=== PATIENT | male | born 1965 | race Two or more races ===

== ENCOUNTER 2019-08-22 10:44 | Inpatient (IN) | payer MEDICAID, OTHER ==
[~2019-08-22] VITALS: Ht 170.2 cm; Wt 179.2 kg
[2019-08-22 12:11] LABS: Basophils # (auto) 0.1 10 ^3/uL (0-0.2); Basophils % (auto) 0.9 % (0.0-2.0); Eosinophils # (auto) 0.1 10 ^3/uL (0-0.8); Eosinophils % (auto) 1.7 % (0.0-7.0); Hematocrit 44.9 % (41.0-53.0); Hemoglobin 15.4 g/dL (13.5-17.5); Lymphocytes # (auto) 0.6 10 ^3/uL (0.4-5.4); Lymphocytes % (auto) 7.7 % (10.0-50.0); Mean Corpuscular Hemoglobin 31.3 pg (28.0-32.0); Mean Corpuscular Hgb Conc. 34.4 g/dL (32.0-36.0); Mean Corpuscular Volume 91.1 fL (80.0-100.0); Monocytes # (auto) 0.7 10 ^3/uL (0-1.3); Monocytes % (auto) 9.4 % (0.0-12.0); Neutrophils # (auto) 6.2 10 ^3/uL (1.6-8.6); Neutrophils % (auto) 80.3 % (37.0-80.0); Platelet Count (auto) 107 10^3/uL (140-450); Red Blood Cells 4.93 10^6/uL (4.5-5.90); Red Cell Distribution Width 13.5 % (11.8-14.3); White Blood Cell 7.8 10^3/uL (4.4-10.8)
[2019-08-22 12:32] LABS: Potassium 4.2 mmol/L (3.5-5.1)
[2019-08-22 12:42] LABS: Albumin 3.7 g/dL (3.4-5.0); BUN/Creatinine Ratio 17.8; Bilirubin, Total 0.9 mg/dL (0.2-1.0); Calcium 8.9 mg/dL (8.5-10.1); Total Protein 8.3 g/dL (6.4-8.2)
[2019-08-22] MEDS ORDERED: ONDANSETRON HCL 4 MG/2 ML VIAL IV ONE (13:00)
[2019-08-22] MEDS ORDERED: MORPHINE SULF INJ 2 MG/ML SYRINGE 1ML IV ONE (13:00)
[2019-08-22] MEDS ORDERED: SODIUM CHLORIDE 0.9% 1,000 ML IVB ONE (13:40)
[2019-08-22] MEDS ORDERED: KETOROLAC TROMETH 15 mg/ml 1ML VL IV ONE (13:45)
[2019-08-22] MEDS ORDERED: CYCLOBENZAPRINE HCL 10 MG TAB PO ONE (13:45)
[2019-08-22] MEDS ORDERED: MORPHINE SULF INJ 2 MG/ML SYRINGE 1ML IV PRN (17:30)
[2019-08-22] MEDS ORDERED: ACETAMINOPHEN 500 MG TAB PO PRN (17:30)
[2019-08-22] MEDS ORDERED: hydrALAZINE HCL 20 MG/ML VL IV PRN (17:30)
[2019-08-22] MEDS ORDERED: FUROSEMIDE 20 MG/2 ML VIAL IV ONE (17:30)
[2019-08-22] MEDS ORDERED: NITROGLYCERIN 0.4 MG SL TAB SL PRN (17:30)
[2019-08-22] MEDS: KETOROLAC TROMETH 15 mg/ml 1ML VL IV PRN (18:51)
--- NOTE | 2019-08-22 18:51 | NUR ---
Telemetry admit from ER TIFFANYMARU admitted to Telemetry unit after SBAR received. Patient oriented to CHINTAN CARDONA RN primary RN, unit, room, bed, and unit policies regarding patient care and visiting hours. Patient now on continuous telemetry monitoring. Patient placed on bedside oxygen, weighed by bedscale and encouraged to call if they need something. All questions and concerns addressed, patient verbalized understanding.
--- NOTE | 2019-08-22 18:53 | NUR ---
COMMUNICATION Patient verbalizing pain 10/10 and requesting Toradol IV. Patient states Toradol works better for him than morphine. Will medicate per MD orders and continue care.
--- NOTE | 2019-08-22 19:00 | NUR ---
Opening Shift Note Assumed care of patient, awake and alert. No S/S of distress/SOB or pain. Instructed on POC and to call for assist PRN, will continue to monitor for changes Q1hr and PRN. Call button placed next to patient.
[2019-08-22 20:00] VITALS: BP 124/74
--- NOTE | 2019-08-22 20:00 | NUR ---
Patient verbalized morphine or toradol no longer gives him relief from pain. Will page hospitalist.
[2019-08-22] MEDS ORDERED: HYDR25TA4 PO (20:05)
[2019-08-22] MEDS ORDERED: ASPI81CH43 PO (20:05)
[2019-08-22] MEDS ORDERED: BECLPOW12 IN (20:05)
[2019-08-22] MEDS ORDERED: FLUT0.05 NAS (20:05)
[2019-08-22] MEDS ORDERED: LISI-646 PO (20:05)
--- NOTE | 2019-08-22 20:09 | NUR ---
Spoke to hospitalist STEFFEN Fletcher regarding no pain relief from morphine or toradol. Received order for Zephyr 7.5. Continue care
[2019-08-22] MEDS: CYCLOBENZAPRINE HCL 10 MG TAB PO SCH (21:30)
[2019-08-22] MEDS: HYDROcodone-ACET 7.5/325MG TAB PO PRN (21:31)
[2019-08-22 22:00] VITALS: BP 135/72
[2019-08-23] VITALS (7 sets, daily range): BP systolic 95–132; BP diastolic 50–65
[2019-08-23] MEDS: HYDROcodone-ACET 7.5/325MG TAB PO PRN ×4 (02:49→23:53)
[2019-08-23 05:56] LABS: Hematocrit 40.8 % (41.0-53.0); Mean Corpuscular Hemoglobin 31.3 pg (28.0-32.0); Mean Corpuscular Hgb Conc. 34.4 g/dL (32.0-36.0); Platelet Count (auto) 105 10^3/uL (140-450); Red Blood Cells 4.48 10^6/uL (4.5-5.90); Red Cell Distribution Width 13.9 % (11.8-14.3); White Blood Cell 17.2 10^3/uL (4.4-10.8)
[2019-08-23] MEDS: CYCLOBENZAPRINE HCL 10 MG TAB PO SCH (06:10)
[2019-08-23] MEDS: KETOROLAC TROMETH 15 mg/ml 1ML VL IV PRN (06:12)
[2019-08-23 06:13] LABS: Potassium 4.6 mmol/L (3.5-5.1)
[2019-08-23 06:15] LABS: BUN/Creatinine Ratio 18.1; Calcium 8.2 mg/dL (8.5-10.1)
[2019-08-23 06:29] LABS: Basophils % (manual) 0 (0.0-2.0); Blast Cells 0; Eosinophils % (manual) 0 (0-7); Metamyelocytes % 0; Myelocytes % 0; Promyelocytes % 0; Reactive Lymphocytes 0
--- NOTE | 2019-08-23 07:10 | NUR ---
Endorsed care to day shift RN. Patient in bed asleep with no signs of distress.
--- NOTE | 2019-08-23 07:11 | NUR ---
Morning note patient resting in bed with eyes closed, respirations even and unlabored, no distress noted. Fall precautions in place with call light within reach.
[2019-08-23 07:54] LABS: Band Neutrophils % (manual) 8; Lymphocytes % (manual) 1 (10.0-50.0); Monocytes % (manual) 8 (0-12)
--- NOTE | 2019-08-23 08:00 | NUR ---
RE: Skin assessment Patient is wearing sweat pants. BLE skin intact. Unable to assess bilateral upper leg skin due to patient's sweat pants being in place. Patient refusing to remove pants. Patient stated "Maybe later."
--- NOTE | 2019-08-23 09:23 | NUR ---
Patient repositioned - patient able to turn self independently Patient repositioned for comfort. Patient reports pain is tolerable at 4/10. Patient reports pain is located in the RUQ and wrapping around to the back. Patient refused pain medication. Call light within reach.
[2019-08-23] MEDS: FAMOTIDINE 20 MG TAB PO SCH (10:00)
[2019-08-23] MEDS ORDERED: LISINOPRIL 10 MG TAB PO SCH (10:00)
--- NOTE | 2019-08-23 12:38 | NUR ---
Influenza specimen collected & sent to lab per MD order
--- NOTE | 2019-08-23 12:39 | NUR ---
Urine specimen cup placed at bedside Instructed patient on MD's order. Patient verbalized understanding. Instructed patient to notify staff once urine specimen is produced. Patient verbalized understanding. Call light within reach.
--- NOTE | 2019-08-23 12:47 | NUR ---
was at bedside - Dr. Aguilar Order received and read back to verify.
[2019-08-23] MEDS ORDERED: SODIUM CHLORIDE 0.9% 1,000 ML IV ONE (13:00)
--- NOTE | 2019-08-23 13:03 | NUR ---
Notified of recent weight gain Patient reports recent weight gain of 40 pounds in the last 2 months with an additional 20 pound weight gain in the past 3 weeks for a total weight gain of 60 pounds in the last [address] Aguilar.
[2019-08-23 13:28] LABS: INR 1.15 (0.9-1.15); Partial Thromboplastin Time 30.5 sec (23.64-32.05)
[2019-08-23] MEDS ORDERED: MAGNESIUM SULFATE 1GM/100ML 100 ML IV SCH (15:00)
--- NOTE | 2019-08-23 15:42 | NUR ---
RE: Pain Patient is reporting pain in the RUQ radiating to the back. Patient rates the pain 6/10. Patient reports pain is tolerable although is requesting pain medication. Informed patient that PRN pain medication cannot be administered right now due to MD order of frequency. Patient verbalized understanding. Heat pack provided for comfort. Respirations are even and unlabored on 3LPM NC, no distress noted. Call light within reach.
--- NOTE | 2019-08-23 16:23 | NUR ---
Bladder scan performed - 402ml urine Patient reports not urinating this RN's shift. Bladder scan performed. 402 ml urine located. Patient states "I'm going to go pee now because I don't want to deal with that catheter. I've had that before." Instructed patient to notify staff once he has urinated. Patient verbalized understanding.
--- NOTE | 2019-08-23 16:41 | NUR ---
Urine specimen collected - patient urinated 375ml of dark colored urine Urine specimen collected and sent to lab per md order.
--- NOTE | 2019-08-23 16:42 | NUR ---
Paged MD - Dr. Aguilar RE: pain Patient reports severe pain in the RUQ. Patient medicated with the PRN pain medication per MD order. Patient reports heat pack did not help with the pain.
--- NOTE | 2019-08-23 16:46 | NUR ---
Updated MD on patient's pain MD verbalized understanding. Order received and read back to verify.
[2019-08-23 16:59] LABS: Urine Bacteria NONE SEEN /hpf (None Seen); Urine Blood Negative /uL (Negative); Urine Mucus FEW (None Seen); Urine Specific Gravity 1.027 (1.001-1.035); Urine WBC 3 /hpf (0 - 3)
[2019-08-23] MEDS: MORPHINE SULF INJ 2 MG/ML SYRINGE 1ML IV PRN ×2 (17:19→22:07)
--- NOTE | 2019-08-23 17:38 | NUR ---
called for an update - Dr. Aguilar Updated on patient's status provided. verbalized understanding. Ordered to continue to monitor.
[2019-08-23] MEDS ORDERED: OPTISON 3ml Vial for INJ IV ONE (18:00)
--- NOTE | 2019-08-23 18:12 | NUR ---
RE: Optison administration Optison administered during echocardiogram examination. Patient tolerated well. Respirations even and unlabored on 3LPM NC, no distress noted.
--- NOTE | 2019-08-23 18:54 | NUR ---
Closing note patient resting in bed with eyes closed; respirations even and unlabored on 3 LPM NC, no distress noted. Fall precautions in place with call light within reach.
--- NOTE | 2019-08-23 19:22 | NUR ---
Care endorsed to [facility], electronic scale assembler and tester.
[2019-08-23] MEDS ORDERED: KETOROLAC TROMETH 15 mg/ml 1ML VL IV ONE (22:15)
[2019-08-24 05:00] VITALS: BP 115/70
[2019-08-24] MEDS: MORPHINE SULF INJ 2 MG/ML SYRINGE 1ML IV PRN ×2 (06:01→12:15)
--- NOTE | 2019-08-24 07:30 | NUR ---
Opening Shift Note Assumed care of patient, No S/S of distress/SOB or pain noted at this time, currently on 2l via NC, patient currently sleeping, chest rise noted, Instructed on POC and to call for assist PRN, call light within reach, bed alarm activated, will continue to monitor for changes Q1hr and PRN.
[2019-08-24 07:47] LABS: Albumin 3.2 g/dL (3.4-5.0); Calcium 8.3 mg/dL (8.5-10.1); Potassium 4.7 mmol/L (3.5-5.1)
[2019-08-24 07:50] LABS: BUN/Creatinine Ratio 25.4; Bilirubin, Total 2.2 mg/dL (0.2-1.0); Total Protein 7.6 g/dL (6.4-8.2)
[2019-08-24 08:00] VITALS: BP 132/74
--- NOTE | 2019-08-24 08:40 | NUR ---
ACTIVITY WITNESSED PT TRANSFER SELF FROM BED TO CHAIR WITH STANDBY ASSISTANCE, PT THEN WENT BACK TO BED RELATED TO BACK PAIN, BED ALARM ACTIVATED AND CALL LIGHT WITHIN REACH, CONT CARE
[2019-08-24 09:00] VITALS: BP 132/74
[2019-08-24] MEDS: FAMOTIDINE 20 MG TAB PO SCH (09:10)
[2019-08-24] MEDS: HYDROcodone-ACET 7.5/325MG TAB PO PRN (09:11)
--- NOTE | 2019-08-24 09:31 | NUR ---
MD DR BERMUDEZ AT BEDSIDE, DISCUSSING POC, INCLUDING PAIN MANAGEMENT, CONT CARE
[2019-08-24] MEDS ORDERED: cefTRIAXone 1GM/50ML D5W 50 ML IV ONE (10:00)
[2019-08-24 10:13] LABS: Basophils # (auto) 0.1 10 ^3/uL (0-0.2); Eosinophils # (auto) 0 10 ^3/uL (0-0.8); Eosinophils % (auto) 0.1 % (0.0-7.0); Hematocrit 37.9 % (41.0-53.0); Lymphocytes # (auto) 0.3 10 ^3/uL (0.4-5.4); Lymphocytes % (auto) 3.1 % (10.0-50.0); Mean Corpuscular Hemoglobin 31.5 pg (28.0-32.0); Mean Corpuscular Hgb Conc. 34.4 g/dL (32.0-36.0); Mean Corpuscular Volume 91.5 fL (80.0-100.0); Monocytes % (auto) 9.3 % (0.0-12.0); Neutrophils # (auto) 9.5 10 ^3/uL (1.6-8.6); Neutrophils % (auto) 86.5 % (37.0-80.0); Nucleated Red Blood Cells % 0.1 %; Platelet Count (auto) 79 10^3/uL (140-450); Red Blood Cells 4.14 10^6/uL (4.5-5.90); Red Cell Distribution Width 13.9 % (11.8-14.3)
[2019-08-24] MEDS: CARISOPRODOL 350 MG TAB PO PRN (10:37)
[2019-08-24] MEDS: IBUPROFEN 800 MG TAB PO SCH ×2 (10:37→17:42)
[2019-08-24 13:00] VITALS: BP 102/53
[2019-08-24] MEDS ORDERED: PANTOPRAZOLE 40 MG TAB PO ONE (13:30)
--- NOTE | 2019-08-24 14:45 | NUR ---
PT REQUESTED THAT P.T. EVALUATION BE DONE AT A LATER TIME.
--- NOTE | 2019-08-24 14:47 | NUR ---
assessment Patient is a 54 year old male who is alert and oriented. Patients cognitive abilities are intact. Prior to admission patient lived home with family and functioned independently. Patient informed me he is able to care for his own ADLs. Per patient he will return home to his prior living arrangements post discharge and family will transport him home. Patient informed me he was stretching and felt back pain. Patient is requesting home health for PT. i informed Kimberlee RN that patient needs a PT eval prior to sending to [facility]. I informed patient he has a right to speak to a director social welfare regarding all care. I informed patient he has a right to participate in any and all discharge planning. Patient does not have a POA and advanced directive. I have offered patient information on POA and advanced directives. I informed the patient the advantages and benefits of having an Advanced Directive. Patient verbalized understanding and agreed to discharge plan. Addendum: 08/24/19 at 1456 by Mitzi HIGHTOWER Amended: Links added.
--- NOTE | 2019-08-24 15:48 | NUR ---
re-assessment [facility]. MD order has been sent to [facility]. Per Verenice at [facility] she has accepted patient for service starting within 48 hours of discharge. Authorization has been given from [facility] Connie auth #[id number]. Patient has been informed. Addendum: 08/24/19 at 1556 by Mitzi Soto Amended: Links added.
--- NOTE | 2019-08-24 16:14 | NUR ---
PAGED PAGED DR BERMUDEZ REGARDING POSITIVE BLOOD CULTURES, AWAITING CALL BACK
[2019-08-24 17:00] VITALS: BP 116/58
[2019-08-24] MEDS: oxyCODONE HCL 5MG TAB PO PRN (17:42)
--- NOTE | 2019-08-24 19:00 | NUR ---
PAGED DR MARC PAGED REGARDING POSITIVE BLOOD CULTURES, CONT CARE
--- NOTE | 2019-08-24 19:13 | NUR ---
MD RETURNED CALL SPOKE WITH DR MARC, ORDERS RECEIVED FOR VANCOMYCIN 1GM IV X1 NOW, THEN PER PHARMACY, WILL ENDORSE TO NIGHT RN
[2019-08-24] MEDS ORDERED: VANCOMYCIN PER PHARMACY 0 MG IV SCH (19:15)
[2019-08-24] MEDS ORDERED: VANCOMYCIN 1GM/250ML 250 ML IV ONE (19:15)
[2019-08-24] MEDS: VANCOMYCIN 1GM/250ML 250 ML IV SCH ×2 (20:00→21:00)
[2019-08-24 22:00] VITALS: BP 131/56
[2019-08-24] MEDS: MORPHINE SULF 15mg ER tab PO SCH (22:43)
[2019-08-24] MEDS: GABAPENTIN 100 MG CAP PO SCH (22:43)
[2019-08-24] MEDS: PANTOPRAZOLE 40 MG TAB PO SCH (22:44)
[2019-08-25] MEDS: VANCOMYCIN 1GM/250ML 250 ML IV SCH ×3 (04:00→19:57)
[2019-08-25 05:00] VITALS: BP 117/55
[2019-08-25] MEDS: GABAPENTIN 100 MG CAP PO SCH ×3 (07:06→22:07)
[2019-08-25] MEDS: PANTOPRAZOLE 40 MG TAB PO SCH ×2 (08:38→22:08)
[2019-08-25] MEDS: MORPHINE SULF 15mg ER tab PO SCH ×2 (08:38→22:08)
[2019-08-25] MEDS: IBUPROFEN 800 MG TAB PO SCH ×2 (08:38→12:24)
[2019-08-25] MEDS: cefTRIAXone 1GM/50ML D5W 50 ML IV SCH (08:39)
[2019-08-25 09:23] VITALS: BP 121/70
--- NOTE | 2019-08-25 11:00 | NUR ---
WOUND CARE NOTE: IN TO SEE PATIENT AT THIS TIME D/T LOW CLEMENTE SCORE OF 11. PATIENT WAS ADMITTED TO [facility] WITH DIAGNOSIS OF DORSALGIA, ACUTE KIDNEY FAILURE, TUBULAR NECROSIS. PATIENT IS MORBIDLY OBESE, WEIGHING 178.3 KG. ORDERED SPECIALTY BARIATRIC BED AT THIS TIME. PATIENT TO BE PLACED, PENDING DELIVERY BY [facility]UL[facility]. PATIENT HAS SEVERE BACK PAIN. WILL BE WORKING WITH PHYSICAL THERAPY TO POSSIBLY GET UP IN CHAIR. HE IS ABLE TO ASSIST WITH HIS TURNING/REPOSITIONING, BUT IS IN 10/10 PAIN WHEN REPOSITIONING. PATIENT TURNED TO THE RIGHT SIDE. SKIN IS PINK AND BLANCHABLE, NO OPEN WOUNDS NOTED. ALL BONY PROMINENCES ARE BLANCHABLE AT THIS POINT. APPLIED OPTIFOAM GENTLE SACRAL DRESSING PREVENTATIVE. RECOMMEND: FREQUENT TURN SCHEDULE Q 2 HOURS, PRN CONDITION PERMITS, WITH PRESSURE REDISTRIBUTION USING PILLOWS/WEDGES, SPECIALTY BARIATRIC BED, SKIN/WOUND CARE PLAN, BID/PRN APPLICATION WITH MOISTURE BARRIER CREAM, OPTIFOAM GENTLE SACRAL DRESSING PREVENTATIVE, DIETARY CONSULT FOR IMMOBILITY, CONTINUED MONITORING BY WOUND CARE TEAM.
[2019-08-25 13:00] VITALS: BP 109/68
[2019-08-25 14:35] LABS: Basophils # (auto) 0 10 ^3/uL (0-0.2); Basophils % (auto) 0.3 % (0.0-2.0); Eosinophils # (auto) 0.1 10 ^3/uL (0-0.8); Eosinophils % (auto) 1.2 % (0.0-7.0); Hematocrit 37.9 % (41.0-53.0); Hemoglobin 13.1 g/dL (13.5-17.5); Lymphocytes # (auto) 0.5 10 ^3/uL (0.4-5.4); Lymphocytes % (auto) 5.7 % (10.0-50.0); Mean Corpuscular Hemoglobin 31.6 pg (28.0-32.0); Mean Corpuscular Hgb Conc. 34.4 g/dL (32.0-36.0); Mean Corpuscular Volume 91.8 fL (80.0-100.0); Monocytes # (auto) 0.9 10 ^3/uL (0-1.3); Monocytes % (auto) 11.6 % (0.0-12.0); Neutrophils # (auto) 6.6 10 ^3/uL (1.6-8.6); Neutrophils % (auto) 81.2 % (37.0-80.0); Nucleated Red Blood Cells % 0.1 %; Platelet Count (auto) 87 10^3/uL (140-450); Red Blood Cells 4.13 10^6/uL (4.5-5.90); Red Cell Distribution Width 13.5 % (11.8-14.3); White Blood Cell 8.2 10^3/uL (4.4-10.8)
[2019-08-25 14:42] LABS: Calcium 8.3 mg/dL (8.5-10.1)
[2019-08-25 14:45] LABS: Potassium 4.9 mmol/L (3.5-5.1)
[2019-08-25] MEDS: oxyCODONE HCL 5MG TAB PO PRN (16:00)
[2019-08-25 17:00] VITALS: BP 146/89
--- NOTE | 2019-08-25 19:00 | NUR ---
Opening Shift Note Assumed care of patient, awake and alert. No S/S of distress/SOB or pain. Instructed on POC and to call for assist PRN, will continue to monitor for changes Q1hr and PRN.
[2019-08-25 21:47] VITALS: BP 121/71
--- NOTE | 2019-08-25 22:08 | NUR ---
Patient complaining of pain: Patient complaining of 10/10 pain. RN administered scheduled Oramorph.
--- NOTE | 2019-08-25 23:24 | NUR ---
Pain reassessment: Patient reassessed for pain after scheduled Oramorph was given. Patient noted to be resting in bed comfortably asleep and noted with no s/s of pain at this time. RN will continue to monitor and assess patient.
[2019-08-26] MEDS: oxyCODONE HCL 5MG TAB PO PRN ×2 (03:25→16:20)
--- NOTE | 2019-08-26 03:25 | NUR ---
Pain: Patient complaining of 10/10 pain. RN gave patient PRN Oxycodone for pain.
[2019-08-26] MEDS: VANCOMYCIN 1GM/250ML 250 ML IV SCH ×3 (03:33→19:55)
--- NOTE | 2019-08-26 04:25 | NUR ---
Pain reassessment: Patient reassessed for pain after PRN Oxycodone was given. Patient noted to be resting in bed comfortably asleep and noted with no s/s of pain at this time. RN will continue to monitor and assess patient.
[2019-08-26 05:17] VITALS: BP 110/65
[2019-08-26] MEDS: GABAPENTIN 100 MG CAP PO SCH ×3 (05:33→21:43)
--- NOTE | 2019-08-26 07:30 | NUR ---
OPENING NOTE ASSUMED CARE PT. PT ALERT AND ORIENTED X4. NO S/S OF SOB AND DISTRESS NOTED. SAFETY PRECAUTIONS IN PLACE. BED SET TO LOWEST POSITION/LOCKED. BED SIDE RAILS UP X2. BED ALARM ON. CALL LIGHT WITHIN REACH. INSTRUCTED PT TO CALL FOR ASSISTANCE. PT UPDATED ON POC. PT VERBALIZED UNDERSTANDING. WILL CONTINUE TO MONITOR Q1HR AND PRN.
--- NOTE | 2019-08-26 08:00 | NUR ---
PATIENT IS REFUSING Q2HR TURNING, PATIENT STATED "MY BACK HURTS AND MY STOMACH HURTS WHEN IM ON MY SIDE, IT FEELS LIKE I HAVE POISON IN MY STOMACH" EDUCATED PATIENT ON THE IMPORTANCE OF TURNING TO PREVENT RISK OF SKIN BREAK DOWN. PATIENT VERBALIZED UNDERSTANDING. PATIENT STILL REFUSING. WILL CONTINUE TO MONITOR AND EDUCATE PATIENT.
[2019-08-26] MEDS: cefTRIAXone 1GM/50ML D5W 50 ML IV SCH (09:24)
[2019-08-26] MEDS: ENOXAPARIN SOD 40 MG/0.4 ML SYRINGE SC SCH (09:25)
[2019-08-26] MEDS: MORPHINE SULF 15mg ER tab PO SCH ×2 (09:25→21:43)
[2019-08-26] MEDS: PANTOPRAZOLE 40 MG TAB PO SCH (09:25)
[2019-08-26 09:27] VITALS: BP 102/68
[2019-08-26] MEDS ORDERED: ENOXAPARIN SOD 40 MG/0.4 ML SYRINGE SC SCH (10:00)
--- NOTE | 2019-08-26 11:39 | NUR ---
PATIENT REFUSING TO TURN. Addendum: 08/26/19 at 1144 by Rachel Schultz RN Amended: Links added.
--- NOTE | 2019-08-26 11:44 | NUR ---
NUTRITION ASSESSMENT NOTES Please refer to link notes of nutrition screen form filed under the intervention section of the plan of care for further details. Est. Energy Needs: 2870-9124 kcal (12-15 kcal/kg BW). Est. Protein Needs: 96-115 gms/day (1.0-1.2 gms/kg Adj.BW). Will continue to monitor pertinent labs and reassess nutrient need prn Addendum: 08/26/19 at [address] Amended: Links added.
[2019-08-26] MEDS ORDERED: DEXTROSE (50%) 50ML SYRG IV PRN (12:45)
[2019-08-26 13:39] VITALS: BP 138/76
[2019-08-26] MEDS ORDERED: PANTOPRAZOLE 40 MG TAB PO ONE (14:15)
--- NOTE | 2019-08-26 16:00 | NUR ---
PATIENT IS REUSING TO TURN. EDUCATED PATIENT ON THE IMPORTANCE OF TURNING TO PREVENT SKIN BREAK DOWN. PATIENT VERBALIZED UNDERSTAND. PATIENT IS STILL REFUSING. Addendum: 08/26/19 at 1632 by Rachel Schultz RN Amended: Links added.
[2019-08-26 16:41] VITALS: BP 118/72
[2019-08-26] MEDS: ACCU-CHEK COMFORT CURVE STRIP VI SCH ×2 (17:03→23:45)
[2019-08-26] MEDS: InsuLIN REG 1unit/0.01ml Soln (100units/ml) SC SCH ×2 (17:04→23:45)
--- NOTE | 2019-08-26 18:02 | NUR ---
PATIENT IS REFUSING TO TURN. EDUCATED PATIENT ON THE IMPORTANCE OF TURNING TO PREVENT SKIN BREAK DOWN. PATIENT VERBALIZED UNDERSTAND. PATIENT IS STILL REFUSING. WILL CONTINUE TO EDUCATE Addendum: 08/26/19 at 1803 by Rachel Schultz RN Amended: Links added.
--- NOTE | 2019-08-26 20:00 | NUR ---
RN ATTEMPTED TO REPOSITION PATIENT. PATIENT IS REFUSING TO TURN AT THIS TIME. RN PROVIDED EDUCATION TO THE PATIENT ON THE IMPORTANCE OF TURNING TO PREVENT SKIN BREAK DOWN. PATIENT VERBALIZED UNDERSTANDING BUT PATIENT IS STILL REFUSING TO TURN. RN WILL CONTINUE TO EDUCATE AND ATTEMPT TO REPOSITION THE PATIENT.
--- NOTE | 2019-08-26 21:43 | NUR ---
Patient complaining of pain: Patient complaining of 10/10 pain. RN administered scheduled Oramorph.
[2019-08-26 22:00] VITALS: BP 123/75
--- NOTE | 2019-08-27 02:17 | NUR ---
IV removal d/t infiltration IV to right FA DC'd with sterile technique, catheter fully intact. Pressure dressing applied to site. Patient tolerated procedure well.
--- NOTE | 2019-08-27 03:00 | NUR ---
BM: PATIENT HAD BM. RN PROVIDED PERICARE AND LINEN CHANGE. PATIENT TOLERATED INTERVENTION WELL.
[2019-08-27] MEDS: VANCOMYCIN 1GM/250ML 250 ML IV SCH ×3 (03:30→19:49)
--- NOTE | 2019-08-27 03:30 | NUR ---
IV insertion IV access to right FA obtained, via clean sterile technique by inserting 22 gauge catheter after first attempt. IV secured properly. No trauma to site. Patient tolerated procedure well.
[2019-08-27 05:00] VITALS: BP 130/63
[2019-08-27] MEDS: GABAPENTIN 100 MG CAP PO SCH ×3 (05:31→22:06)
[2019-08-27] MEDS: ACCU-CHEK COMFORT CURVE STRIP VI SCH ×4 (05:32→23:38)
[2019-08-27] MEDS: InsuLIN REG 1unit/0.01ml Soln (100units/ml) SC SCH ×4 (05:32→23:38)
[2019-08-27 06:18] LABS: Potassium 4.5 mmol/L (3.5-5.1)
[2019-08-27 06:22] LABS: BUN/Creatinine Ratio 28.6; Calcium 8.4 mg/dL (8.5-10.1)
[2019-08-27 06:51] LABS: Basophils # (auto) 0 10 ^3/uL (0-0.2); Basophils % (auto) 0.2 % (0.0-2.0); Eosinophils # (auto) 0.1 10 ^3/uL (0-0.8); Eosinophils % (auto) 1.3 % (0.0-7.0); Hematocrit 38.6 % (41.0-53.0); Hemoglobin 13.1 g/dL (13.5-17.5); Lymphocytes # (auto) 0.5 10 ^3/uL (0.4-5.4); Lymphocytes % (auto) 5.9 % (10.0-50.0); Mean Corpuscular Hemoglobin 30.6 pg (28.0-32.0); Mean Corpuscular Hgb Conc. 33.9 g/dL (32.0-36.0); Mean Corpuscular Volume 90.4 fL (80.0-100.0); Monocytes # (auto) 0.9 10 ^3/uL (0-1.3); Neutrophils # (auto) 6.3 10 ^3/uL (1.6-8.6); Neutrophils % (auto) 80.6 % (37.0-80.0); Nucleated Red Blood Cells % 0.2 %; Platelet Count (auto) 108 10^3/uL (140-450); Red Blood Cells 4.27 10^6/uL (4.5-5.90); Red Cell Distribution Width 13.7 % (11.8-14.3); White Blood Cell 7.8 10^3/uL (4.4-10.8)
[2019-08-27 09:00] VITALS: BP 124/71
[2019-08-27] MEDS: cefTRIAXone 1GM/50ML D5W 50 ML IV SCH (09:43)
[2019-08-27] MEDS: MORPHINE SULF 15mg ER tab PO SCH ×2 (09:47→22:07)
[2019-08-27] MEDS: PANTOPRAZOLE 40 MG TAB PO SCH (09:47)
[2019-08-27] MEDS: ENOXAPARIN SOD 40 MG/0.4 ML SYRINGE SC SCH (09:51)
--- NOTE | 2019-08-27 12:24 | NUR ---
PATIENT DID NOT EAT BREAKFAST. ENCOURAGED PT TO EAT LUNCH, PT REPORTS HE IS NOT HUNGRY. PT EDUCATED ON RISKS THAT HIS BLOOD SUGAR COULD DROP. PT AWARE.
[2019-08-27 13:00] VITALS: BP 131/73
--- NOTE | 2019-08-27 13:44 | NUR ---
I received a call from Dr. Aguilar letting me know that this patient needs to be transferred to higher level of care for MRI to r/o osteomyelitis of the spine and for treatment of osteomyelitis of the spine. I spoke with patient's nurse Sandi and asked her to re-weigh patient and to measure abdominal girth.
--- NOTE | 2019-08-27 14:03 | NUR ---
I faxed higher [facility].
--- NOTE | 2019-08-27 14:12 | NUR ---
UNABLE TO DRAW REPEAT BLOOD CULTURE FROM PICC LINE PER MD REQUEST. CALLED DR LAGUNA TO NOTIFY , AWARE, NEW ORDERS FOR BLOOD CULTURE X 2. Addendum: 08/27/19 at 1417 by JONO PUTNAM RN WRONG PATIENT
--- NOTE | 2019-08-27 14:30 | NUR ---
Pt declined PT tx citing back pain and he further stated he wants to wait and see what is going to happen as he is going to another hospital. Addendum: 08/27/19 at 1559 by Blair Foy HOOP MAKER Amended: Links added.
--- NOTE | 2019-08-27 15:02 | NUR ---
PT WEIGHT 161.1 KG AND ABDOMINAL GIRTH 39 INCHES FROM RIGHT TO LEFT HIP AT HIGHEST POINT. Addendum: 08/27/19 at 1504 by JONO PUTNAM RN 181.1 KG NOT 161.1
[2019-08-27 15:09] LABS: INR 1.12 (0.9-1.15)
--- NOTE | 2019-08-27 15:10 | NUR ---
ELBOW TO ELBOW MEASUREMENT IS 41 INCHES. [facility] CALLED AND REPORTS PT IS TOO LARGE FOR THIER MRI. CALLED PBX AND PAGED DR BERMUDEZ TO NOTIFY . AWAITING CALL BACK.
[2019-08-27] MEDS: oxyCODONE HCL 5MG TAB PO PRN (15:14)
--- NOTE | 2019-08-27 15:14 | NUR ---
DR BERMUDEZ CALLED BACK, NOTIFIED PT TOO BIG FOR [facility] MACHINE, AWARE. MD REPORTS TO NOTIFY [facility] SANITARIAN AND ASK THEM TO FIND ANOTHER FACILITY. CALLED AND LEFT MESSAGE WITH МАРИНА, SS, AWAITING CALL BACK.
--- NOTE | 2019-08-27 15:26 | NUR ---
I faxed transfer to higher level of care request to [facility].
--- NOTE | 2019-08-27 15:27 | NUR ---
I called [facility] [phone] and spoke with Justen-placed patient on will call pending transfer to higher level of care-auth number from Nereyda at [facility] for transportation is [id number]. Per Nereyda at [facility] authorization number for facility is [id number].
--- NOTE | 2019-08-27 15:39 | NUR ---
I received a call from Edelmira at the [facility] Transfer Center letting me know that they can not accommodate this patient-their MRI can go up to 500 pounds but no more than 27 inches abd girth.
--- NOTE | 2019-08-27 16:20 | NUR ---
I called the [facility] [phone] and spoke with Nikki Rothman, she said they can not accommodate this patient-their MRI machine can only go up to 22.5 inches abdominal girth. I called [facility] [phone] and left a message with the hospitality house supervisor asking if they can accommodate this patient. I called [facility] [phone] and spoke with Seng at the transfer center, she said their MRI machine can only handle up to 28 inches of abdominal girth. I called [facility] [phone] and spoke with Lucy, she said their MRI can hold up to 500 pounds but only 27 inches abdominal girth. I called [facility] and spoke with Jonna to ask if they can accommodate this patient, she will find out and give me a call back.
--- NOTE | 2019-08-27 16:25 | NUR ---
I received a call from Jonna at [facility] letting me know that they can not accommodate a patient with that abdominal girth. I called Nereyda at [facility]-she suggested reaching out to [facility]-she will speak with some people and let me know if there are any other facilities that she can suggest that can accommodate this patient.
--- NOTE | 2019-08-27 16:37 | NUR ---
I called [facility] [phone] and spoke with Fina to ask if they can accommodate a patient of this size/abdominal girth-I provided her with requested clinical information-she will give me a call back to let me know.
--- NOTE | 2019-08-27 16:50 | NUR ---
I placed a page out to Dr. Aguilar to update her on the status of the transfer request.
[2019-08-27 17:00] VITALS: BP 151/72
--- NOTE | 2019-08-27 18:32 | NUR ---
PT UPSET, PT KEEPS ASKING FOR WATER. PT ON 400 ML FLUID RESTRICTION OF TODAY. PT HAD A PITCHER OF WATER THIS MORNING, BEFORE ORDERS. FLUID HELD, PT AWARE AND EDUCATED.
[2019-08-27 21:42] VITALS: BP 124/68
--- NOTE | 2019-08-27 22:07 | NUR ---
Patient complaining of pain: Patient complaining of 10/10 pain. RN administered scheduled Oramorph.
--- NOTE | 2019-08-27 23:28 | NUR ---
RN ATTEMPTED TO REPOSITION PATIENT. PATIENT WAS INITIALLY REFUSING TO TURN BUT NOW ALLOWED RN TO HELP HIM TURN ONTO HIS LEFT SIDE WITH PILLOWS FOR ADJUSTMENT.
--- NOTE | 2019-08-27 23:38 | NUR ---
Refused blood glucose check. Patient refused blood glucose check. Patient states his sugars have been good these past few days and doesn't feel the need to be checked so much. Patient requesting for morning blood glucose check only at this time.
--- NOTE | 2019-08-28 03:18 | NUR ---
Care endorsed to Shelly LERMA. Patient currently stable and resting in bed comfortably with no s/s of discomfort or distress.
--- NOTE | 2019-08-28 03:18 | NUR ---
Received report from assigned RN Onur. Pt. in bed asleep, easily arousable, on air mattress, obese pt. , max. assist with ADL's, call-light @ the bedside.
[2019-08-28] MEDS: VANCOMYCIN 1GM/250ML 250 ML IV SCH ×3 (04:39→21:36)
--- NOTE | 2019-08-28 04:39 | NUR ---
IV antibiotic Vancomycin 1 GM given @ 0439 Am. Pt. aware of the meds. use and indication. Pt. verbalized understanding then returned to sleep.
[2019-08-28] MEDS: oxyCODONE HCL 5MG TAB PO PRN ×3 (04:41→22:46)
--- NOTE | 2019-08-28 04:41 | NUR ---
Pt. given Oxycodone 10 mg. po. = 2 tabs. for lower back pain severe about 8/10 scale. Will monitor the effectivity of the pain reliever an hour after.
[2019-08-28 04:50] VITALS: BP 126/66
[2019-08-28 05:41] LABS: Hematocrit 38.2 % (41.0-53.0); Hemoglobin 13.1 g/dL (13.5-17.5); Mean Corpuscular Hemoglobin 31.2 pg (28.0-32.0); Mean Corpuscular Hgb Conc. 34.4 g/dL (32.0-36.0); Mean Corpuscular Volume 90.7 fL (80.0-100.0); Platelet Count (auto) 122 10^3/uL (140-450); Red Blood Cells 4.21 10^6/uL (4.5-5.90); Red Cell Distribution Width 13.6 % (11.8-14.3); White Blood Cell 7.5 10^3/uL (4.4-10.8)
[2019-08-28 06:03] LABS: BUN/Creatinine Ratio 27.3; Calcium 8.2 mg/dL (8.5-10.1)
[2019-08-28] MEDS: GABAPENTIN 100 MG CAP PO SCH ×2 (06:28→15:05)
[2019-08-28] MEDS: ACCU-CHEK COMFORT CURVE STRIP VI SCH ×3 (06:30→18:44)
[2019-08-28] MEDS: InsuLIN REG 1unit/0.01ml Soln (100units/ml) SC SCH ×3 (06:30→18:00)
[2019-08-28 07:02] LABS: Blast Cells 0; Metamyelocytes % 0; Myelocytes % 0; Promyelocytes % 0; Reactive Lymphocytes 0
[2019-08-28 07:55] LABS: Band Neutrophils % (manual) 1; Basophils % (manual) 2 (0.0-2.0); Eosinophils % (manual) 1 (0-7); Lymphocytes % (manual) 63 (10.0-50.0); Monocytes % (manual) 16 (0-12)
--- NOTE | 2019-08-28 08:22 | NUR ---
I received a call from Fina at [facility] letting me know that they can not accommodate this patient for transfer.
[2019-08-28 09:00] VITALS: BP 109/66
[2019-08-28] MEDS: PANTOPRAZOLE 40 MG TAB PO SCH (09:50)
[2019-08-28] MEDS: ENOXAPARIN SOD 40 MG/0.4 ML SYRINGE SC SCH (09:50)
[2019-08-28] MEDS: MORPHINE SULF 15mg ER tab PO SCH ×2 (09:51→21:39)
--- NOTE | 2019-08-28 10:08 | NUR ---
I called [facility] [phone] and spoke with storage facility housekeeper Dioni, she is going to find out if they can accommodate this patient and will give me a call back.
[2019-08-28] MEDS: cefTRIAXone 1GM/50ML D5W 50 ML IV SCH (10:48)
[2019-08-28 12:15] VITALS: BP 112/68
--- NOTE | 2019-08-28 14:24 | NUR ---
PICC LINE NURSE AT BEDSIDE.
--- NOTE | 2019-08-28 14:27 | NUR ---
I called Transfer Center (for [facility] and [facility])[phone] and spoke with Pauline, she is going to see if they can accommodate this patient and will give me a call back.
--- NOTE | 2019-08-28 14:36 | NUR ---
PICC line placement Patient educated on need for PICC line placement. All risks and benefits explained and all questions and concerns addressed prior to procedure. Noted past medical history and allergies with no contraindications. INR and Plt counts within acceptable range. 4 fr PICC line inserted via right basilic vein using [employer] US and Tip Location System. Sterile technique with maximum barrier precautions utilized. Blood return obtained from lumen and flushed easily with NS using proper technique. PICC secured with Stat-lock; biodisc and occlusive dressing applied. Stat portable chest x-ray obtained for PICC tip placement. *Baseline Arm Circumference 41 cm. Internal length 52 cm. External length 0. PICC lot #[id number]
[2019-08-28] MEDS ORDERED: LIDOCAINE 1% (LOCAL ANESTH.) PF 5ml SDV ID ONE (14:45)
--- NOTE | 2019-08-28 15:03 | NUR ---
I received a call from the [facility] [phone]-per [facility] may be able to accommodate this patient-faxed her requested face sheet, H&P, progress notes and contact information for Dr. Aguilar.
--- NOTE | 2019-08-28 15:07 | NUR ---
Okay to use PICC line Xray completed. Okay to use PICC line. Sinai LERMA notified.
[2019-08-28 16:18] VITALS: BP 131/69
--- NOTE | 2019-08-28 16:26 | NUR ---
I called [facility] ([phone]) and spoke with Marva-patient remains on will call pending transfer to [facility]-I relayed this information to Nurse Rawls.
--- NOTE | 2019-08-28 19:05 | NUR ---
Received report from the Day Shift RN. Garcia. Initial assessment done. Pt. in bed resting, easily arousable and will respond to name. Keep pt. safe and provided a quiet environment.
[2019-08-28] MEDS ORDERED: GABAPENTIN 100 MG CAP PO SCH (19:15)
--- NOTE | 2019-08-28 19:30 | NUR ---
Pt. SR with HR = 93/min. with BBB @ the monitor. Pt. on Tele # 29.
[2019-08-28] MEDS: GABAPENTIN 300 MG CAP PO SCH ×2 (21:36→21:40)
[2019-08-28] MEDS: SODIUM CHLOR 0.9% PF (SALINE LOCK) 10ML VIAL/SYR IV SCH (21:36)
--- NOTE | 2019-08-28 21:36 | NUR ---
Meds. as scheduled given/administered @ this time. Pt. provided explanation for his due medications @ this time. Pt. verbalized understanding.
[2019-08-28 21:46] VITALS: BP 125/68
--- NOTE | 2019-08-28 22:46 | NUR ---
Pt. given Oxycodone 10 mg. po for severe pain @ the lower back and generalized pain about 9 scale. Pt. aware of the benefits of the pain reliever given.
--- NOTE | 2019-08-28 23:46 | NUR ---
Pt. facial expression with 2/10 scale and pt. scooted up turned and repositioned and turned to the sides then position @ the Left side lying with pillows supporting back. HOB up @ 35 degree angle. Reenforced blanket. Keep pt. warm, clean and comfortable in bed. Maintained a quiet room environment.
--- NOTE | 2019-08-29 00:30 | NUR ---
Pt. resting comfortably, assisted with adl's, given urinal and able to void well yellow, light leeann urine. Cleansed/washed pt.'s perineal with the help of MACHINES TECHNICIAN/caregiver. Pt. ready to sleep now, SR @ the 80's to 90's per minute @ the monitor. Tele # 29.
[2019-08-29] MEDS: InsuLIN REG 1unit/0.01ml Soln (100units/ml) SC SCH ×4 (01:04→17:32)
[2019-08-29] MEDS: ACCU-CHEK COMFORT CURVE STRIP VI SCH ×4 (01:04→17:33)
--- NOTE | 2019-08-29 02:00 | NUR ---
Pt. sleeping undisturbed. SR @ the monitor 80's per minute.
--- NOTE | 2019-08-29 04:00 | NUR ---
Pt. sleeping undisturbed. Pt.'s rounding and check done. SR @ the Telemetry @ the 80's to 90's per minute.
[2019-08-29] MEDS: VANCOMYCIN 1GM/250ML 250 ML IV SCH ×3 (04:20→20:39)
[2019-08-29 04:46] VITALS: BP 107/69
[2019-08-29] MEDS: oxyCODONE HCL 5MG TAB PO PRN ×2 (05:05→18:26)
--- NOTE | 2019-08-29 06:17 | NUR ---
Accucheck taken with result of BS = 110 , No coverage for Insulin needed.
[2019-08-29] MEDS: GABAPENTIN 300 MG CAP PO SCH ×3 (06:31→22:19)
--- NOTE | 2019-08-29 07:00 | NUR ---
Gave report to the next Day Shift assigned RN.
[2019-08-29 07:49] LABS: BUN/Creatinine Ratio 22.9; Calcium 8.2 mg/dL (8.5-10.1)
--- NOTE | 2019-08-29 07:55 | NUR ---
Opening Shift Note Assumed care of patient, awake and alert, oriented x 4 and verbally responsive. Respiratory even and unlabored. No S/S of distress/SOB or pain. Skin is warm and dry to touch, no s/s of hyperglycemia or hypoglycemia noted. Instructed on POC and to call for assist PRN, will continue to monitor for changes Q1hr and PRN.
[2019-08-29 09:00] VITALS: BP 127/63
--- NOTE | 2019-08-29 10:00 | NUR ---
I called the [facility] Transfer Center [phone] and spoke with Harmony-provided her with patient's weight from today-she is going to make some phone calls and give me a call back.
[2019-08-29] MEDS: ENOXAPARIN SOD 40 MG/0.4 ML SYRINGE SC SCH (10:05)
[2019-08-29] MEDS: PANTOPRAZOLE 40 MG TAB PO SCH (10:05)
[2019-08-29] MEDS: cefTRIAXone 1GM/50ML D5W 50 ML IV SCH (10:05)
[2019-08-29] MEDS: SODIUM CHLOR 0.9% PF (SALINE LOCK) 10ML VIAL/SYR IV SCH ×2 (10:05→20:39)
[2019-08-29] MEDS: MORPHINE SULF 15mg ER tab PO SCH ×2 (10:06→22:19)
--- NOTE | 2019-08-29 11:04 | NUR ---
I received a call from the [facility] Transfer Center asking for patient's abdominal girth to be re-measured. I relayed this information to Nurse Sinai, she will give me a call back after patient is measured.
--- NOTE | 2019-08-29 11:15 | NUR ---
Left a message to Bertin Simpson, regarding abdominal girth is 63 inches, awaiting to call back.
--- NOTE | 2019-08-29 11:32 | NUR ---
I spoke with Nurse Sinai, re-measurement of abdominal girth is 41 inches-I called [facility] [phone] and spoke with Anne, she is going to speak with her sandblasting supervisor and give me a call back to let me know if they can accommodate this patient.
[2019-08-29 13:00] VITALS: BP 122/73
[2019-08-29 17:00] VITALS: BP 121/65
--- NOTE | 2019-08-29 17:28 | NUR ---
Transfer center from [place] ([facility]) called stated there is no bed available yet, have to call and follow up tomorrow. Will endorse to case mgr.
--- NOTE | 2019-08-29 18:01 | NUR ---
Informed patient that there is no bed available at this time.
[2019-08-29 21:46] VITALS: BP 116/62
[2019-08-30] MEDS: ACCU-CHEK COMFORT CURVE STRIP VI SCH ×3 (00:42→12:13)
--- NOTE | 2019-08-30 02:00 | NUR ---
RECEIVED REPORT FROM OUTGOING KENNEL AIDE RN ASSUMING ROLE OF CARE OF PATIENT AT THIS TIME. PATIENT SHOWING NO SIGN OF DISTRESS, SHORTNESS OF BREATH, BUT PATIENT DOES STATE PAIN. PATIENT MEDICATED PER PAIN PROTOCOL AT THIS TIME. PATIENT INFORMED OF CHANGE IN STAFFING AND VERBALIZED UNDERSTANDING. BED LOWERED, CALL LIGHT WITHIN REACH, AND PATIENT WILL BE ROUNDED ON EVERY HOUR AND NEEDED.
[2019-08-30] MEDS: oxyCODONE HCL 5MG TAB PO PRN ×3 (02:15→23:10)
[2019-08-30] MEDS: VANCOMYCIN 1GM/250ML 250 ML IV SCH ×3 (03:28→20:02)
[2019-08-30 05:00] VITALS: BP 129/74
[2019-08-30] MEDS: InsuLIN REG 1unit/0.01ml Soln (100units/ml) SC SCH ×3 (05:45→12:13)
[2019-08-30] MEDS: GABAPENTIN 300 MG CAP PO SCH ×3 (05:45→21:44)
[2019-08-30 08:57] VITALS: BP 120/60
[2019-08-30] MEDS: cefTRIAXone 1GM/50ML D5W 50 ML IV SCH (10:01)
[2019-08-30] MEDS: SODIUM CHLOR 0.9% PF (SALINE LOCK) 10ML VIAL/SYR IV SCH ×2 (10:02→21:44)
[2019-08-30] MEDS: MORPHINE SULF 15mg ER tab PO SCH ×2 (10:02→21:45)
[2019-08-30] MEDS: ENOXAPARIN SOD 40 MG/0.4 ML SYRINGE SC SCH (10:02)
[2019-08-30] MEDS: PANTOPRAZOLE 40 MG TAB PO SCH (10:02)
--- NOTE | 2019-08-30 10:04 | NUR ---
I called the [facility] [phone] and spoke with Anne, she said they can not accommodate this patient-their MRI table holds up to 440 pounds but only 71cm abdominal girth. I called [facility] [phone] and spoke with Stacy-she is not sure if they can accommodate this patient-she said to fax over information and she will have someone call me back. Faxed requested clinical information to [phone].
[2019-08-30 11:40] LABS: Calcium 8.2 mg/dL (8.5-10.1); Potassium 4.4 mmol/L (3.5-5.1)
[2019-08-30 11:43] LABS: BUN/Creatinine Ratio 17.8
[2019-08-30 12:46] VITALS: BP 109/71
[2019-08-30] MEDS: CARISOPRODOL 350 MG TAB PO PRN ×2 (15:03→23:10)
--- NOTE | 2019-08-30 16:06 | NUR ---
Patient refused Bariatric bed and he wants a regular bed instead. He stated that it causes him to get more back pain. I (primary nurse) explained to him risks and benefits. However, patient keep refusing. Charge nurse and Marcella wound nurse made aware.
--- NOTE | 2019-08-30 17:10 | NUR ---
D/C Planning Per SS consult for SNF placement for 5 weeks of IV abx for T-8 diskitis IV abx Vancomycin 2 gm q12h, checks trough level after 4th does. Hold the dose if level is > 20 ug/ml. Monitor BMP every 4 days while on Vancomycin, Picc line care, physical therapy and pain management. Faxed order to [facility] for reviewed. Order was faxed to [facility], [facility], [facility], [facility], and [facility]. Per Chata with [facility] patient is 54 years old and they only take patient after 55 years old. [facility], [facility], [facility] and [facility] are unable to accommodate patient needs at the moment their bed capacity are 350lbs. Pending on [facility].
--- NOTE | 2019-08-30 19:20 | NUR ---
Opening Shift Note Received report from Sinai LERMA. Assumed care of patient, awake and alert. No S/S of distress/SOB. Complains of back pain, will give medication once due. Instructed on POC and to call for assist PRN, will continue to monitor for changes Q1hr and PRN.
[2019-08-30 22:00] VITALS: BP 132/60
[2019-08-31] MEDS: VANCOMYCIN 1GM/250ML 250 ML IV SCH ×3 (03:50→23:44)
[2019-08-31 04:58] VITALS: BP 124/64
[2019-08-31] MEDS: oxyCODONE HCL 5MG TAB PO PRN ×3 (05:05→23:53)
[2019-08-31] MEDS: GABAPENTIN 300 MG CAP PO SCH ×3 (05:57→21:55)
[2019-08-31] MEDS: CARISOPRODOL 350 MG TAB PO PRN ×3 (07:07→23:54)
--- NOTE | 2019-08-31 08:10 | NUR ---
Patient in bed, asleep, no acute distress noted. Patient is obese. On bed alarm. Walker at bedside.
[2019-08-31] MEDS: cefTRIAXone 1GM/50ML D5W 50 ML IV SCH (08:20)
[2019-08-31] MEDS: SODIUM CHLOR 0.9% PF (SALINE LOCK) 10ML VIAL/SYR IV SCH ×2 (08:25→21:55)
--- NOTE | 2019-08-31 08:45 | NUR ---
RN reported that pt is sleeping and that PT tx should wait until he wakes up. Addendum: 08/31/19 at 1138 by Blair Foy PTA Amended: Links added.
[2019-08-31 08:57] LABS: BUN/Creatinine Ratio 15.2; Calcium 8.3 mg/dL (8.5-10.1); Potassium 4.2 mmol/L (3.5-5.1)
--- NOTE | 2019-08-31 09:33 | NUR ---
Physical Therapist at bedside.
--- NOTE | 2019-08-31 10:10 | NUR ---
Patient wet the bed. Patient stated he was using the urinal but accidentally wet the bed. MINE Garay and I cleaned the patient. Changed the whole bed linen.
[2019-08-31] MEDS: ENOXAPARIN SOD 40 MG/0.4 ML SYRINGE SC SCH (10:39)
[2019-08-31] MEDS: MORPHINE SULF 15mg ER tab PO SCH ×2 (10:39→21:54)
[2019-08-31] MEDS: PANTOPRAZOLE 40 MG TAB PO SCH (10:39)
--- NOTE | 2019-08-31 11:15 | NUR ---
Pt requested PT tx "after lunch" today. Addendum: 08/31/19 at 1138 by Blair Foy MANAGING PRINCIPAL Amended: Links added.
[2019-08-31] MEDS ORDERED: ENOXAPARIN SOD 40 MG/0.4 ML SYRINGE SC ONE (13:15)
[2019-08-31 13:27] VITALS: BP 126/62
[2019-08-31 16:45] VITALS: BP 116/72
--- NOTE | 2019-08-31 17:25 | NUR ---
Advised Dr. Florez at 14:00 no facility will accommodate patient needs for IV abx due their beds can only hold up to 350lbs and patient Wt: is 403lbs . Informed doctor patient will benefit for home health IV abx. Pending on home health order.
--- NOTE | 2019-08-31 18:20 | NUR ---
Patient complained of pain. Explained to patient he's not due for Oxycodone nor Morphine pill for pain at this time, only Tylenol can be given at this time. Patient refused Tylenol. Hot packs given to patient for comfort.
--- NOTE | 2019-08-31 18:47 | NUR ---
[facility] Hospitalist Dr. Clayton.
[2019-08-31 22:00] VITALS: BP 140/83
[2019-09-01 02:00] VITALS: BP 137/76
[2019-09-01 05:00] VITALS: BP 114/69
[2019-09-01] MEDS: GABAPENTIN 300 MG CAP PO SCH ×3 (06:18→22:00)
[2019-09-01] MEDS: oxyCODONE HCL 5MG TAB PO PRN ×3 (06:34→20:58)
[2019-09-01 09:34] VITALS: BP 129/68
[2019-09-01] MEDS: SODIUM CHLOR 0.9% PF (SALINE LOCK) 10ML VIAL/SYR IV SCH ×2 (10:10→22:00)
[2019-09-01] MEDS: PANTOPRAZOLE 40 MG TAB PO SCH (10:10)
[2019-09-01] MEDS: VANCOMYCIN 1GM/250ML 250 ML IV SCH ×2 (10:10→20:26)
[2019-09-01] MEDS: ENOXAPARIN SOD 40 MG/0.4 ML SYRINGE SC SCH (10:10)
[2019-09-01] MEDS: cefTRIAXone 1GM/50ML D5W 50 ML IV SCH (10:10)
[2019-09-01] MEDS: MORPHINE SULF 15mg ER tab PO SCH ×2 (10:10→22:00)
--- NOTE | 2019-09-01 10:30 | NUR ---
PT REPORTS THAT HE ALREADY SAT ON EDGE OF BED AND DOES NOT WANT TO GET UP AGAIN.
--- NOTE | 2019-09-01 10:40 | NUR ---
Dr. Huerta at bedside. MD made aware patient could not get accepted to SNF due unavailability of bariatric bed. As per Inspector Circuitry Negative, patient can go home with home health on IV antibiotics. Will follow up with Internet Sales Director.
[2019-09-01 11:39] LABS: Calcium 8.8 mg/dL (8.5-10.1); Potassium 4.2 mmol/L (3.5-5.1)
[2019-09-01 11:47] LABS: BUN/Creatinine Ratio 16.2; CRP High Sensitivity 3.97 mg/dL (< 0.3)
[2019-09-01] MEDS: CARISOPRODOL 350 MG TAB PO PRN ×2 (12:04→20:27)
--- NOTE | 2019-09-01 12:04 | NUR ---
Soma PO given for muscle spasm.
[2019-09-01 12:13] LABS: Basophils # (auto) 0 10 ^3/uL (0-0.2); Basophils % (auto) 0.5 % (0.0-2.0); Eosinophils # (auto) 0.2 10 ^3/uL (0-0.8); Eosinophils % (auto) 4.3 % (0.0-7.0); Hematocrit 36.2 % (41.0-53.0); Hemoglobin 12.4 g/dL (13.5-17.5); Lymphocytes # (auto) 0.6 10 ^3/uL (0.4-5.4); Lymphocytes % (auto) 11.5 % (10.0-50.0); Mean Corpuscular Hemoglobin 31.4 pg (28.0-32.0); Mean Corpuscular Hgb Conc. 34.4 g/dL (32.0-36.0); Mean Corpuscular Volume 91.2 fL (80.0-100.0); Monocytes # (auto) 0.5 10 ^3/uL (0-1.3); Monocytes % (auto) 8.3 % (0.0-12.0); Neutrophils # (auto) 4.2 10 ^3/uL (1.6-8.6); Neutrophils % (auto) 75.4 % (37.0-80.0); Platelet Count (auto) 111 10^3/uL (140-450); Red Blood Cells 3.97 10^6/uL (4.5-5.90); Red Cell Distribution Width 13.8 % (11.8-14.3); White Blood Cell 5.6 10^3/uL (4.4-10.8)
--- NOTE | 2019-09-01 12:30 | NUR ---
Patient called that he dropped his cellphone on the floor. Cellphone found on floor next to bed with back cover . Unit Sec. Ho placed back the cellphone and gave it to the patient.
--- NOTE | 2019-09-01 12:40 | NUR ---
Patient kept asking for iced tea, stated Dietary kept serving him coffee, he does not drink coffee. Explained to patient he's on 400 ml fluid restriction as ordered by the doctor, but he kept asking for iced chips and iced tea. Patient denies he's gaining weight. Explained to patient that I will send a request for iced tea but it's up to Dietary if they will send his request for it.
--- NOTE | 2019-09-01 13:00 | NUR ---
Paged the Angle Furnaceman.
[2019-09-01 13:01] VITALS: BP 114/63
--- NOTE | 2019-09-01 13:10 | NUR ---
Patient stated his cousin Robin can help him with IV antibiotics at home.
--- NOTE | 2019-09-01 13:10 | NUR ---
Coil Placer Shira Brown called back. Shira made aware patient could not be accepted at SNF because they have no bariatric bed. As per Daytime Caregiver, patient can go home with home health and IV antibiotics, patient has a PICC Line, Dr. Huerta put a discharge order. Shira to call back.
--- NOTE | 2019-09-01 13:10 | NUR ---
Asked patient if he has a family member who lives with him who can help him with the home IV antibiotics when he gets discharge.
--- NOTE | 2019-09-01 13:59 | NUR ---
WOUND CARE NOTE: Wound care in to see patient for skin integrity monitoring. Patient continue resting in bed in Rm. 217a. Patient is awake, alert and oriented. Patient is able to assist in turning and repositioning, however he moves and turn slower due to body habitus and due to back pain. Patient refused bariatric bed and on regular hospital bed. Patient is in no stated pain at this time however mild pain noted upon turning. No open wound noted, no pressure injury noted. Patient is receiving BID/PRN cleaning and application of Barrier cream to sacral buttocks as preventative. Patient tolerated skin assessment, reposition for comfort. Bed in low position, call mabry on hand, all safety precautions in placed. RECOMMENDATION: Continuation of all wound care orders prescribed by MD, continue with skin/wound plan of care, continue monitoring by wound care while Jake score is < 18.
--- NOTE | 2019-09-01 14:20 | NUR ---
Superintendent Building Shira Brown called back to send the patient's copy of face sheet, orders, H&P, Chest X ray of PICC Line placement, medication list and current Laboratory to [facility] .
--- NOTE | 2019-09-01 14:37 | NUR ---
Oxycodone PO given for pain.
--- NOTE | 2019-09-01 14:40 | NUR ---
About 300 ml of light leeann urine emptied from the urinal.
--- NOTE | 2019-09-01 15:23 | NUR ---
Copies of face sheet, H&P, Orders, Chest X ray for PICC Line placement, medication list and current Laboratory sent via Fax to [facility] ( ) and [facility] ( ).
[2019-09-01 17:26] VITALS: BP 136/78
--- NOTE | 2019-09-01 17:54 | NUR ---
Dr. Chandra came over to see the patient for follow up Neurology Consult.
--- NOTE | 2019-09-01 19:50 | NUR ---
Opening Shift Note Assumed care of patient, awake, AAOx4. No S/S of distress/SOB or pain. On 2L oxygen via nasal cannula, use of walker at bedside, max assist to sit up in bed. Bed in lowest locked position, side rails up x2, call light within reach. Instructed on POC and to call for assist PRN, will continue to monitor for changes Q1hr and PRN.
[2019-09-01 22:00] VITALS: BP 122/86
[2019-09-02] MEDS: oxyCODONE HCL 5MG TAB PO PRN ×3 (02:58→20:20)
[2019-09-02] MEDS: CARISOPRODOL 350 MG TAB PO PRN ×2 (04:41→15:48)
[2019-09-02 05:00] VITALS: BP 109/53
[2019-09-02] MEDS: GABAPENTIN 300 MG CAP PO SCH ×3 (06:00→22:17)
[2019-09-02 07:28] LABS: Calcium 8.2 mg/dL (8.5-10.1); Potassium 4.3 mmol/L (3.5-5.1)
[2019-09-02 07:32] LABS: BUN/Creatinine Ratio 15.9
--- NOTE | 2019-09-02 07:35 | NUR ---
Patient in bed, awake, oriented x4. No acute distress noted.
[2019-09-02] MEDS: VANCOMYCIN 1GM/250ML 250 ML IV SCH ×3 (07:37→22:17)
--- NOTE | 2019-09-02 07:40 | NUR ---
About 350 ml of light leeann urine emptied from the urinal.
--- NOTE | 2019-09-02 08:55 | NUR ---
BETO Gerber came over, spoke with the patient regarding Physical Therapy.
[2019-09-02 09:00] VITALS: BP 143/80
--- NOTE | 2019-09-02 09:05 | NUR ---
Patient sitting up on chair for physical therapy.
[2019-09-02] MEDS: cefTRIAXone 1GM/50ML D5W 50 ML IV SCH (09:18)
[2019-09-02] MEDS: MORPHINE SULF 15mg ER tab PO SCH ×2 (09:19→22:17)
[2019-09-02] MEDS: SODIUM CHLOR 0.9% PF (SALINE LOCK) 10ML VIAL/SYR IV SCH ×2 (09:19→22:17)
[2019-09-02] MEDS: ENOXAPARIN SOD 40 MG/0.4 ML SYRINGE SC SCH (09:20)
[2019-09-02] MEDS: PANTOPRAZOLE 40 MG TAB PO SCH (09:20)
--- NOTE | 2019-09-02 09:50 | NUR ---
Dr. Huerta came over to see the patient. made aware the request for home health for home IV antibiotics has been sent via Fax to [facility] and [facility] yesterday. Waiting for Marble Helper to call back today for follow up.
[2019-09-02 13:00] VITALS: BP 107/59
--- NOTE | 2019-09-02 13:13 | NUR ---
Patient stated his back pain level at 10/10. Oxycodone PO given for pain.
--- NOTE | 2019-09-02 13:43 | NUR ---
I called [facility]-they will have the product support consultant pharmacist call me back with an update on the home IV ATB arrangements.
--- NOTE | 2019-09-02 14:03 | NUR ---
I received a call from [facility]-they will not be able to complete this order today-I relayed this information to nurse García.
--- NOTE | 2019-09-02 14:05 | NUR ---
Received a call back from Chemical Engineering Intern Shira Brown that [facility] received the papers for home health/IV antibiotics yesterday but not the order. Informed Shira that I sent all the papers including the order for home health for IV antibiotics via Fax to [facility] and [facility] yesterday. Shira said she will follow it up tomorrow, Tuesday.
--- NOTE | 2019-09-02 15:15 | NUR ---
Patient wet the bed. Assisted the patient to get up from bed to his front wheel walker. MINE Birch and Zaida cleaned the patient, changed the gown, removed the soiled bed linen, cleaned the mattress, applied clean bed linen, assisted the patient back to bed.
--- NOTE | 2019-09-02 15:48 | NUR ---
Soma PO given for muscle spasm.
[2019-09-02 17:00] VITALS: BP 107/57
--- NOTE | 2019-09-02 19:50 | NUR ---
Opening Shift Note Assumed care of patient, awake, AAOx4. No S/S of distress/SOB. Pain level 8/10 to back. On 2L oxygen via nasal cannula, use of walker at bedside, max assist to sit up in bed. Bed in lowest locked position, side rails up x2, call light within reach. Instructed on POC and to call for assist PRN, will continue to monitor for changes Q1hr and PRN.
[2019-09-02 22:00] VITALS: BP 117/69
[2019-09-03] MEDS: CARISOPRODOL 350 MG TAB PO PRN ×3 (00:23→22:10)
[2019-09-03 05:00] VITALS: BP 102/74
[2019-09-03] MEDS: VANCOMYCIN 1GM/250ML 250 ML IV SCH ×3 (06:00→22:00)
[2019-09-03] MEDS: GABAPENTIN 300 MG CAP PO SCH ×3 (06:00→22:00)
--- NOTE | 2019-09-03 08:29 | NUR ---
Faxed flush order, home IV ATB order to [facility].
--- NOTE | 2019-09-03 08:45 | NUR ---
Pt requested PT tx "later". Addendum: 09/03/19 at 1201 by Blair Foy CLOUD INFRASTRUCTURE ARCHITECT Amended: Links added.
[2019-09-03 08:51] VITALS: BP 107/57
[2019-09-03] MEDS: cefTRIAXone 1GM/50ML D5W 50 ML IV SCH (09:12)
[2019-09-03] MEDS: ENOXAPARIN SOD 40 MG/0.4 ML SYRINGE SC SCH (09:52)
[2019-09-03] MEDS: PANTOPRAZOLE 40 MG TAB PO SCH (09:52)
[2019-09-03] MEDS: MORPHINE SULF 15mg ER tab PO SCH ×2 (09:53→22:00)
[2019-09-03] MEDS: SODIUM CHLOR 0.9% PF (SALINE LOCK) 10ML VIAL/SYR IV SCH ×2 (09:53→22:00)
--- NOTE | 2019-09-03 10:13 | NUR ---
I received a call from Lynn at [facility] letting me know that they need an order that states home pharmacy to manage home IV Vancomycin. I relayed this information to patient's nurse.
--- NOTE | 2019-09-03 10:45 | NUR ---
Pt requested PT tx "after lunch". Addendum: 09/03/19 at 1202 by Blair Foy CATEGORY DEVELOPMENT ANALYST Amended: Links added.
--- NOTE | 2019-09-03 11:43 | NUR ---
D/C Planning Bookbinder Chief consult regarding Home Health for IV abx with Vancomycin 2gm q12h for 5 weeks. Check through level after 4th doses. Vancomycin level to be monitored by pharmacy and dose to be adjusted as needed. Copper Miner Blasting Shira will be completing IV abx. Contacted [facility] and clinical information was faxed to agency. Per Verenice with [facility] patient has been accepted and service to start within 24/48hrs upon d/c day. Faxed order to [facility] requesting authorization for [facility]. Per Connie with [facility] authorization for home health is [id number]. MARIA GUADALUPE Roa was informed of d/c plan. Addendum: 09/03/19 at 1149 by HARIKA HIGHTOWER Amended: Links added.
[2019-09-03 12:48] VITALS: BP 109/60
--- NOTE | 2019-09-03 12:54 | NUR ---
I faxed update home IV ATB order to [facility].
[2019-09-03] MEDS: oxyCODONE HCL 5MG TAB PO PRN ×2 (15:10→21:10)
--- NOTE | 2019-09-03 15:10 | NUR ---
Pain Complaint Patient complained of pain at level 10. Medicated as ordered with pain medication. Will reassess in an hour.
[2019-09-03 17:31] VITALS: BP 120/60
--- NOTE | 2019-09-03 18:00 | NUR ---
Diet Patient is non-compliant with dietary restrictions. He asked family members to bring food from outside and is getting annoyed when told he is on a specific diet. He stated that he had it before and cannot see why he is restricted. Explained to patient that he is on a cardiac diet -2gNa, Lofat, LoChol. Patient verbalized understanding.
--- NOTE | 2019-09-03 19:40 | NUR ---
Opening Shift Note Assumed care of patient, awake, AAOx4. No S/S of distress/SOB. On 2L oxygen via nasal cannula, use of walker at bedside, max assist to sit up in bed. Bed in lowest locked position, side rails up x2, call light within reach. Instructed on POC and to call for assist PRN, will continue to monitor for changes Q1hr and PRN.
--- NOTE | 2019-09-03 20:10 | NUR ---
DR. ACOSTA AT BEDSIDE. NO NEW ORDERS RECEIVED AT THIS TIME.
[2019-09-03 21:55] VITALS: BP 111/49
[2019-09-04] MEDS: oxyCODONE HCL 5MG TAB PO PRN ×3 (03:19→18:31)
[2019-09-04 05:38] VITALS: BP 119/60
[2019-09-04] MEDS: VANCOMYCIN 1GM/250ML 250 ML IV SCH ×3 (06:07→22:22)
[2019-09-04] MEDS: GABAPENTIN 300 MG CAP PO SCH ×2 (06:07→14:19)
--- NOTE | 2019-09-04 07:49 | NUR ---
Opening Shift Note Assumed care of patient, awake and alert. No S/S of distress/SOB or pain. Instructed on POC and to call for assist PRN, will continue to monitor for changes Q1hr and PRN. Call light placed within reach.
[2019-09-04 08:46] VITALS: BP 106/69
--- NOTE | 2019-09-04 09:15 | NUR ---
RN Janina advised me patient does not feel safe going home. Spoke to patient at bedside regarding orders for home health explaining to him [facility] beds go up to 350lbs. Advised patient I will reach out to [facility] again and see if they will accommodate his needs and will also follow up with insurance to see if they will authorize a bariatric bed. Per Leticia with [facility] patient is not participating with physical therapy and in order for her to accommodate his needs patient will have to participate with physical therapy. Advised nurse a updated physical therapy evaluation is needs to determine if they are able to accept patient. Antique Refinisher Enrico with [facility] was informed of plan and they will authorized for SNF if [facility] and a DME Vendor is able to deliver the bariatric bed to the facility.
[2019-09-04] MEDS: MORPHINE SULF 15mg ER tab PO SCH ×2 (09:41→22:26)
[2019-09-04] MEDS: CARISOPRODOL 350 MG TAB PO PRN (09:41)
[2019-09-04] MEDS: PANTOPRAZOLE 40 MG TAB PO SCH (09:41)
[2019-09-04] MEDS: cefTRIAXone 1GM/50ML D5W 50 ML IV SCH (09:42)
[2019-09-04] MEDS: SODIUM CHLOR 0.9% PF (SALINE LOCK) 10ML VIAL/SYR IV SCH ×2 (09:42→22:22)
[2019-09-04] MEDS: ENOXAPARIN SOD 40 MG/0.4 ML SYRINGE SC SCH (09:43)
--- NOTE | 2019-09-04 10:00 | NUR ---
PICC Dressing change PICC dressing change done as per protocol.
[2019-09-04 13:28] VITALS: BP 106/57
--- NOTE | 2019-09-04 15:28 | NUR ---
Nutrition Follow-up Notes Wt.: 179.0 kg Pt currently on Cardiac diet with good PO intake aeb avg 79% per lacing presser. Will continue to monitor pertinent labs and reassess nutrient needs prn. Est. Energy Needs: 8371-7204 kcal (12-15 kcal/kg BW). Est. Protein Needs: 96-115 gms/day (1.0-1.2 gms/kg Adj.BW). Labs 09/01: Ca 8.2 L Skin: Jake scale 18, mod risk, no wounds per lacing presser. GI: Pt had BM 09/03/19 per lacing presser. PES: 1) Altered nutrition related lab values r/t current medical condition aeb hypocalcemia, hyperglycemia, hyponatremia- (Partially Resolved) 2) Obese, Class III r/t excessive energy intake prior to admission aeb BMI 63 kg/m2 abd 271% IBW Will continue to monitor PO intake, pertinent labs, skin status and weight trends. F/u in 3 to 5 days. Additional Recommendation: 1) If Albumin continues trending down, consider Prostat 1 pkt daily. 2) Continue close supervision and feeding assistance prn during meals. 3) Refer to RD for further nutrition education and weight monitoring upon discharge. 4) Continue current plan of care
--- NOTE | 2019-09-04 16:34 | NUR ---
D/C Planning Faxed updated physical therapy notes to [facility]. Per Leticia with [facility] they do not have a male bed today however, they will accepted patient on Tuesday09/05/2019. Placed followed up called to Enrico with [facility] advising her patient has been accepted to [facility] however, they will take patient on Tuesday due to no male bed today. Per Enrico with [facility] she will be working on authorization and will follow up. Faxed clinical information to [facility] requesting bariatric bed to be deliver to [facility]. Will follow up. Nurse Roa was informed.
[2019-09-04 17:22] VITALS: BP 90/50
--- NOTE | 2019-09-04 18:25 | NUR ---
Pain Patient complained of pin, states its at level 10 on the pain scale. Will medicated as ordered and reassess within an hour.
--- NOTE | 2019-09-04 19:10 | NUR ---
Received report from the Day Shift RN. Roa.
[2019-09-04 22:00] VITALS: BP 104/65
--- NOTE | 2019-09-04 22:22 | NUR ---
Pt. meds. as scheduled given. Pt. provided explanation to the use and indication of meds. Pt. verbalized partial understanding.
[2019-09-04] MEDS: GABAPENTIN 400 MG CAP PO SCH (22:23)
--- NOTE | 2019-09-04 23:20 | NUR ---
Gave report to next assigned MARIA GUADALUPE Pathak. resting and calm in bed.
[2019-09-05] VITALS (7 sets, daily range): BP systolic 91–115; BP diastolic 48–66
[2019-09-05] MEDS: oxyCODONE HCL 5MG TAB PO PRN ×4 (00:25→20:36)
[2019-09-05] MEDS: GABAPENTIN 400 MG CAP PO SCH ×3 (06:00→22:00)
[2019-09-05] MEDS: VANCOMYCIN 1GM/250ML 250 ML IV SCH ×3 (06:00→22:34)
[2019-09-05] MEDS: CARISOPRODOL 350 MG TAB PO PRN (06:37)
--- NOTE | 2019-09-05 08:02 | NUR ---
Opening Shift Note Assumed care of patient, awake and alert. No S/S of distress/SOB or pain, however patient states that he is having more pain today especially when he moves. Pain medication already given. Instructed on POC and to call for assist PRN, will continue to monitor for changes Q1hr and PRN.
--- NOTE | 2019-09-05 09:00 | NUR ---
Hospitalist Rounding Dr. Florez at bedside. Patient encouraged to comply with diet and not order outside food or request additional juices.
[2019-09-05] MEDS: cefTRIAXone 1GM/50ML D5W 50 ML IV SCH (10:03)
[2019-09-05] MEDS: SODIUM CHLOR 0.9% PF (SALINE LOCK) 10ML VIAL/SYR IV SCH ×2 (10:04→22:00)
[2019-09-05] MEDS: ENOXAPARIN SOD 40 MG/0.4 ML SYRINGE SC SCH (10:04)
[2019-09-05] MEDS: PANTOPRAZOLE 40 MG TAB PO SCH (10:04)
[2019-09-05] MEDS: MORPHINE SULF 15mg ER tab PO SCH ×2 (10:04→22:36)
--- NOTE | 2019-09-05 16:06 | NUR ---
D/C Planning Per Meek with [facility] will not authorize Bariatric bed to [facility] and the authorization will have to come directly from [facility] and order will have to be redirected to contracted DME. Placed followed up called to Enrico with [facility] advising her what Meek with [facility] informed me. Per Enrico with [facility] they will authorize bariatric bed. Faxed orders to [facility] advising them authorization will be given by [facility]. Per Grazyna with [facility] bariatric bed will be deliver to [facility] between 16:30-18:00. Placed followed up called to Lynn with [facility]. Per Lynn patient will be going to room [address] C under MD Dr. Izaguirre. Faxed transportation request form to [facility] requesting for berry picker machine operator time to be at 18:30 via gurney with oxygen. MARIA GUADALUPE Roa was informed of d/c plan.
--- NOTE | 2019-09-05 16:15 | NUR ---
Patient informed that he has a bed assigned at [facility].
--- NOTE | 2019-09-05 17:30 | NUR ---
Report given to Virginia LERMA at [place] [phone].
--- NOTE | 2019-09-05 17:40 | NUR ---
Patient stated that he does not want to go to SNF anymore. He want to go home. He stated that because he walked with physical therapist and felt like he can manage at home now. Also [facility] is too far and he does not have anyone there to help him.
--- NOTE | 2019-09-05 18:15 | NUR ---
Dr. Florez notified that patient is refusing SNF.
--- NOTE | 2019-09-05 18:30 | NUR ---
Social Service Notified Social Service of Patient's decision to go home instead of SNF. Patient verbalized that he will not go to SNF anymore. He understand that his choice to go home is what it will be for his discharge and not SNF. He is also aware that he will not be able to go this PM as home health will have to be arranged and his antibiotics delivered. electric meter tester helper and Neurologist in attendance.
--- NOTE | 2019-09-05 19:00 | NUR ---
Transportation Unable to notify transportation that patient is no longer going to SNF.
--- NOTE | 2019-09-05 19:05 | NUR ---
Notified Virginia duron Ermine that patient refused SNF transfer.
--- NOTE | 2019-09-05 19:26 | NUR ---
Dr. Florez aware that patient is not discharged to SNF. Choose to go home 09/06/2019 instead.
--- NOTE | 2019-09-05 19:30 | NUR ---
Opening Shift Note Assumed care of patient, awake and alert. No S/S of distress/SOB. Complains of pain 9/10 to lower back. Able to transfer to the commode on his own. Transport arrived and was notified of patient staying until tomorrow to discharge home. Instructed on POC and to call for assist PRN, will continue to monitor for changes Q1hr and PRN.
[2019-09-06] MEDS: oxyCODONE HCL 5MG TAB PO PRN ×2 (04:30→14:42)
[2019-09-06 05:00] VITALS: BP 111/63
[2019-09-06] MEDS: VANCOMYCIN 1GM/250ML 250 ML IV SCH ×2 (06:04→13:04)
[2019-09-06] MEDS: GABAPENTIN 400 MG CAP PO SCH ×2 (06:05→13:04)
--- NOTE | 2019-09-06 08:00 | NUR ---
RECEIVED PATIENT ALERT AND ORIENTED X3, NOT IN DISTRESS, CLEAR LS IN BILATERAL UPPER AND DIMINISHED IN LOWER LUNG LOBED, RR=16 DEEP BREATHING AND COUGHING WAS ENCOURAGED, DEMONSTRATED WELL, DENIED SOB AND CHEST PAIN, HEART R=74, ABDOMEN SOFT AND ROUND WITH ACTIVE BS, LAST BM=09/05/19 REPORTED, SKIN INTACT, WARM TO TOUCH, RADIAL AND PEDAL PULSES PALPABLE, RESTING ON BED EATING BREAK FAST, HEAD OF BED ELEVATED, BED ON LOW POSITION, RAILS UP X2, CALL LIGHT ON REACH, PENDING SS FOR D/C PROCESS WILL CONTINUE MONITORING.
--- NOTE | 2019-09-06 08:32 | NUR ---
SS CAME AND DISCUSSED D/C PLAN, PATIENT IS WILLING TO BE D/C HOME WITH HOME HEALTH BY STATING LIVES WITH COUSIN AND ABLE TO WALK WITH WALKER, WILL CONTINUE MONITORING.
[2019-09-06 09:00] VITALS: BP 137/70
[2019-09-06] MEDS: SODIUM CHLOR 0.9% PF (SALINE LOCK) 10ML VIAL/SYR IV SCH (09:29)
[2019-09-06] MEDS: cefTRIAXone 1GM/50ML D5W 50 ML IV SCH (09:29)
[2019-09-06] MEDS: MORPHINE SULF 15mg ER tab PO SCH (09:30)
[2019-09-06] MEDS: PANTOPRAZOLE 40 MG TAB PO SCH (09:30)
[2019-09-06] MEDS: ENOXAPARIN SOD 40 MG/0.4 ML SYRINGE SC SCH (09:31)
--- NOTE | 2019-09-06 12:50 | NUR ---
OUT OF BED WITH PT AMBULATED WITH WALKER AROUND THE UNIT X1, TOLERATED WELL, BACK TO BED AND RESTING AT THIS MOMENT, PENDING D/C HOME TODAY, PENDING FOR D/C ARRANGEMENT PROCESS, WILL CONTINUE MONITORING.
[2019-09-06 13:00] VITALS: BP 134/62
[2019-09-06] MEDS: CARISOPRODOL 350 MG TAB PO PRN (13:04)
--- NOTE | 2019-09-06 13:49 | NUR ---
Faxed home IV ATB order to [facility]. Spoke with Lynn at [facility]-she said they require a Vancomycin trough to be drawn prior to discharge so they can complete the infusion order-made patient's primary nurse aware. Per Lynn at [facility] she spoke with patient and he provided her with new address [address] [place] [id number] (new phone # [phone]).
--- NOTE | 2019-09-06 14:35 | NUR ---
STAT VANCOMYCIN THROUGH WAS DRAW ORDERED, R=13.3, SS WAS CALLED TO BE NOTIFIED REQUESTED, RESTING ON BED AND TALKING ON THE PHONE, WILL CONTINUE MONITORING.
--- NOTE | 2019-09-06 14:46 | NUR ---
Faxed today's trough to [facility].
--- NOTE | 2019-09-06 15:16 | NUR ---
I spoke with Lynn at [facility] ([phone])-they are set to deliver home IV ATB to patient's home between 8-10pm this evening.
--- NOTE | 2019-09-06 15:19 | NUR ---
D/C Planning Patient refused to go to [facility] after he had agree to go to facility for IV abx. Nurse Epperson was at [facility] when speaking to Patient regarding discharge plan. Patient stated he would like to go home and his cousin Robin Ph:) will help with IV abx when home health is not available. Patient verbalize understanding d/c plan. Fnps consult regarding Home Health for IV abx with Vancomycin 2gm q12h for 4 weeks. Check through level after 4th doses. Vancomycin level to be monitored by pharmacy and dose to be adjusted as needed. Rn Care Manager Shira will be completing IV abx. Contacted [facility] and clinical information was faxed to agency. Per Verenice with [facility] patient has been accepted and service to start within 24/48hrs upon d/c day. Faxed order to [facility] requesting authorization for [facility] health. Per Connie with [facility] authorization for home health is [id number]. Faxed transportation form request to [facility] for a 18:00 picker tender via bariatric bed with oxygen. Per Jaqui with [facility] transportation has been arrange with Faby Wilson Ph:( [phone]) with a 18:00 picker tender. Nurse Epperson was informed of d/c plan.
[2019-09-06 16:20] VITALS: BP 126/73
[2019-09-06 16:50] VITALS: BP 98/53
--- NOTE | 2019-09-06 17:55 | NUR ---
D/C INSTRUCTIONS WERE GIVEN, HOME HEALTH FOR ANTIBIOTIC ARRANGEMENT INFORMATION PROVIDED, VERBALIZED UNDERSTANDING, PRESCRIPTION MEDICATION WAS GIVEN BY [facility], MEDICATION EDUCATION PROVIDED, FOLLOW UP WITH PCP WILL ARRANGED BY CALLING FROM HOME REPORTED, RT. UPPER ARM SINGLE LUMEN PICC LINE IN PLACE PATENT AND INTACT, VS T=98.1 RR=18 SAT=97% P=76 XM=285/73, NOT IN DISTRESS, PAIN L=3/10 REPORTED, D/C HOME ON GURNEY, TOOK ALL BELONGINGS AND LEFT NOTHING BEHIND.
== END 2019-09-06 17:30 | DRG 344 ==
LOC: EDBD 10:44 → ER 10:44 → TELE-CENTR 10:45 → CENTRAL 08-30 10:36
PROVIDERS: ADMIT Nurse Practitioner Acute Care; ATTEND Internal Medicine
PROC: 02HV33Z Insertion of Infusion Device into Superior Vena Cava, Percutaneous Approach (ICD-10-PCS; principal; 2019-08-28)
DX: M46.24 Osteomyelitis of vertebra, thoracic region (principal); N17.0 Acute kidney failure with tubular necrosis; D69.6 Thrombocytopenia, unspecified; E66.01 Morbid (severe) obesity due to excess calories; E87.1 Hypo-osmolality and hyponatremia; R16.0 Hepatomegaly, not elsewhere classified; K70.30 Alcoholic cirrhosis of liver without ascites; M54.9 Dorsalgia, unspecified; I10 Essential (primary) hypertension; F10.20 Alcohol dependence, uncomplicated; R09.89 Other specified symptoms and signs involving the circulatory and respiratory systems; D72.829 Elevated white blood cell count, unspecified; K44.9 Diaphragmatic hernia without obstruction or gangrene; G89.29 Other chronic pain; R16.1 Splenomegaly, not elsewhere classified; E78.5 Hyperlipidemia, unspecified; E78.00 Pure hypercholesterolemia, unspecified; F17.210 Nicotine dependence, cigarettes, uncomplicated; R00.0 Tachycardia, unspecified; M48.00 Spinal stenosis, site unspecified; M19.90 Unspecified osteoarthritis, unspecified site; Z82.49 Family history of ischemic heart disease and other diseases of the circulatory system; Z68.44 Body mass index [BMI] 60.0-69.9, adult
CPT/HCPCS: 36415; 36569; 71045; 72128; 72131; 74176; 76705; 80048; 80053; 80061; 80202; 81001; 82565; 82962; 83036; 83735; 83880; 84443; 84484; 85007; 85025; 85027; 85379; 85610; 85652; 85730; 86141; 87040; 87086; 87804; 93005; 93306; 93970; 96361; 96374; 96375; 97110; 97163; 97530; G0378; J0696; J1815; J2405; Q9956

== ENCOUNTER → 2019-10-10 | Emergency (ER) | payer MEDICAID ==
[~2019-10-10] VITALS: Ht 167.6 cm; Wt 172.4 kg
[~2019-10-10] MED LIST: ASPI81CH43 PO; CATHFLO ACTIVASE (ALTEPLASE) 2 MG VIAL IV ONE; FLUT0.05 NAS; LISI-646 PO; SODIUM CHLORIDE 0.9% 1,000 ML IV ONE; SODIUM CHLORIDE 0.9% 500 ML IV ONE; VANCOMYCIN 1GM/250ML 250 ML IV ONE
[2019-10-10 13:06] LABS: Basophils # (auto) 0.1 10 ^3/uL (0-0.2); Basophils % (auto) 2.4 % (0.0-2.0); Eosinophils # (auto) 0.2 10 ^3/uL (0-0.8); Eosinophils % (auto) 3.9 % (0.0-7.0); Hematocrit 43.3 % (41.0-53.0); Hemoglobin 14.3 g/dL (13.5-17.5); Lymphocytes # (auto) 0.9 10 ^3/uL (0.4-5.4); Lymphocytes % (auto) 18.5 % (10.0-50.0); Mean Corpuscular Hemoglobin 29.9 pg (28.0-32.0); Mean Corpuscular Volume 90.4 fL (80.0-100.0); Monocytes # (auto) 0.6 10 ^3/uL (0-1.3); Monocytes % (auto) 11.7 % (0.0-12.0); Neutrophils # (auto) 3.1 10 ^3/uL (1.6-8.6); Neutrophils % (auto) 63.5 % (37.0-80.0); Nucleated Red Blood Cells % 0.3 %; Platelet Count (auto) 118 10^3/uL (140-450); Red Blood Cells 4.79 10^6/uL (4.5-5.90); Red Cell Distribution Width 14.7 % (11.8-14.3)
[2019-10-10 13:19] LABS: Albumin 3.4 g/dL (3.4-5.0); Calcium 8.9 mg/dL (8.5-10.1); Magnesium 2.7 mg/dL (1.6-2.6); Potassium 3.9 mmol/L (3.5-5.1)
[2019-10-10 13:23] LABS: BUN/Creatinine Ratio 14.1; Bilirubin, Total 0.7 mg/dL (0.2-1.0); Total Protein 8.1 g/dL (6.4-8.2)
[2019-10-10 18:30] VITALS: BP 129/75
== END | disposition home or self-care (01) ==
LOC: ER 10:37
DX: M47.816 Spondylosis without myelopathy or radiculopathy, lumbar region (principal); E66.01 Morbid (severe) obesity due to excess calories; Z68.44 Body mass index [BMI] 60.0-69.9, adult; M46.45 Discitis, unspecified, thoracolumbar region; I87.8 Other specified disorders of veins; K74.60 Unspecified cirrhosis of liver; I10 Essential (primary) hypertension; E11.9 Type 2 diabetes mellitus without complications; E78.5 Hyperlipidemia, unspecified; F17.210 Nicotine dependence, cigarettes, uncomplicated; Z79.82 Long term (current) use of aspirin; Z79.899 Other long term (current) drug therapy
CPT/HCPCS: 36415; 71046; 80053; 83735; 85025; 96365; 99284; J2997; J3370

== ENCOUNTER → 2019-10-19 | Emergency (ER) | payer MEDICAID ==
[~2019-10-19] VITALS: Ht 167.6 cm; Wt 166.0 kg
[~2019-10-19] MED LIST changes: -CATHFLO ACTIVASE (ALTEPLASE) 2 MG VIAL IV ONE; -SODIUM CHLORIDE 0.9% 1,000 ML IV ONE; -SODIUM CHLORIDE 0.9% 500 ML IV ONE; -VANCOMYCIN 1GM/250ML 250 ML IV ONE
[2019-10-19 19:16] VITALS: BP 168/98
== END | disposition left against medical advice (07) ==
LOC: ER 19:01
DX: Z48.00 Encounter for change or removal of nonsurgical wound dressing (principal); Z53.21 Procedure and treatment not carried out due to patient leaving prior to being seen by health care provider

== ENCOUNTER → 2019-10-20 | Emergency (ER) | payer MEDICAID ==
[~2019-10-20] VITALS: Ht 167.6 cm; Wt 166.5 kg
[~2019-10-20] MED LIST changes: +HYDROcodone-ACET 10/325MG TAB PO ONE
[2019-10-20 18:06] LABS: Basophils # (auto) 0 10 ^3/uL (0-0.2); Basophils % (auto) 0.5 % (0.0-2.0); Eosinophils # (auto) 0.3 10 ^3/uL (0-0.8); Eosinophils % (auto) 5.9 % (0.0-7.0); Hematocrit 40.6 % (41.0-53.0); Hemoglobin 13.4 g/dL (13.5-17.5); Lymphocytes # (auto) 0.9 10 ^3/uL (0.4-5.4); Lymphocytes % (auto) 20.7 % (10.0-50.0); Mean Corpuscular Hemoglobin 29.9 pg (28.0-32.0); Mean Corpuscular Volume 90.7 fL (80.0-100.0); Monocytes # (auto) 0.6 10 ^3/uL (0-1.3); Monocytes % (auto) 12.5 % (0.0-12.0); Neutrophils # (auto) 2.7 10 ^3/uL (1.6-8.6); Neutrophils % (auto) 60.4 % (37.0-80.0); Nucleated Red Blood Cells % 0.1 %; Platelet Count (auto) 134 10^3/uL (140-450); Red Blood Cells 4.48 10^6/uL (4.5-5.90); Red Cell Distribution Width 14.7 % (11.8-14.3); White Blood Cell 4.5 10^3/uL (4.4-10.8)
[2019-10-20 18:22] LABS: Albumin 3.2 g/dL (3.4-5.0); Calcium 8.5 mg/dL (8.5-10.1); INR 1.11 (0.9-1.15); Partial Thromboplastin Time 28.2 sec (23.64-32.05); Potassium 3.8 mmol/L (3.5-5.1)
[2019-10-20 18:25] LABS: BUN/Creatinine Ratio 13.5; Bilirubin, Total 0.8 mg/dL (0.2-1.0); Total Protein 7.1 g/dL (6.4-8.2)
[2019-10-20 21:30] VITALS: BP 109/68
== END | disposition home or self-care (01) ==
LOC: ER 17:07
DX: T82.598A Other mechanical complication of other cardiac and vascular devices and implants, initial encounter (principal); Y83.9 Surgical procedure, unspecified as the cause of abnormal reaction of the patient, or of later complication, without mention of misadventure at the time of the procedure; Y92.89 Other specified places as the place of occurrence of the external cause
CPT/HCPCS: 36410; 36415; 36569; 80053; 85025; 85610; 85730

== ENCOUNTER 2021-01-17 19:37 | Emergency (ER) | payer MEDICAID ==
[~2021-01-17] VITALS: Ht 167.6 cm; Wt 181.4 kg
[~2021-01-17 19:37] MED LIST changes: -HYDROcodone-ACET 10/325MG TAB PO ONE; -LISI-646 PO; +LISI20TA28 PO
[2021-01-17] MEDS ORDERED: DOXYCYCLINE 100MG/250ML 250 ML IV ONE (21:00)
[2021-01-17 22:44] LABS: Basophils # (auto) 0.1 10 ^3/uL (0-0.2); Basophils % (auto) 1.1 % (0.0-2.0); Eosinophils # (auto) 0.2 10 ^3/uL (0-0.8); Eosinophils % (auto) 4.8 % (0.0-7.0); Hematocrit 41.2 % (41.0-53.0); Hemoglobin 13.8 g/dL (13.5-17.5); Lymphocytes # (auto) 0.8 10 ^3/uL (0.4-5.4); Lymphocytes % (auto) 17.1 % (10.0-50.0); Mean Corpuscular Hemoglobin 30.5 pg (28.0-32.0); Mean Corpuscular Hgb Conc. 33.6 g/dL (32.0-36.0); Mean Corpuscular Volume 90.6 fL (80.0-100.0); Monocytes # (auto) 0.5 10 ^3/uL (0-1.3); Monocytes % (auto) 10.7 % (0.0-12.0); Neutrophils # (auto) 3.3 10 ^3/uL (1.6-8.6); Neutrophils % (auto) 66.3 % (37.0-80.0); Nucleated Red Blood Cells % 0.2 %; Red Blood Cells 4.54 10^6/uL (4.5-5.90); Red Cell Distribution Width 14.2 % (11.8-14.3)
[2021-01-17 22:55] LABS: Albumin 2.8 g/dL (3.4-5.0); Anion Gap 8 (5-15); Blood Urea Nitrogen 9 mg/dL (7-18); Calcium 7.9 mg/dL (8.5-10.1); Carbon Dioxide 27 mmol/L (21-32); Chloride 103 mmol/L (98-107); Glucose 91 mg/dL (74-106); Magnesium 2.4 mg/dL (1.6-2.6); Potassium 3.9 mmol/L (3.5-5.1); Sodium 138 mmol/L (136-145)
[2021-01-17 22:57] LABS: Alanine Aminotransferase 22 U/L (16-61); Aspartate Aminotransferase 23 U/L (15-37); BUN/Creatinine Ratio 9.9; GFR African American 112 mL/min; GFR Non-African American 93 mL/min
[2021-01-17 23:02] LABS: Alkaline Phosphatase 121 U/L (45-117); Bilirubin, Total 0.5 mg/dL (0.2-1.0); Total Protein 7.1 g/dL (6.4-8.2)
[2021-01-18] MEDS ORDERED: CALCIUM GLUC 1,000mg/50ml-NS 50 ML IV ONE ×2 (02:00→02:30)
[2021-01-18 03:00] VITALS: BP 144/62
== END 2021-01-18 02:01 | disposition home or self-care (01) ==
LOC: EDSEX 19:37 → EDBD 19:37 → ER 19:41
DX: R07.89 Other chest pain (principal); L89.219 Pressure ulcer of right hip, unspecified stage; E11.9 Type 2 diabetes mellitus without complications; E78.00 Pure hypercholesterolemia, unspecified; I10 Essential (primary) hypertension; F17.210 Nicotine dependence, cigarettes, uncomplicated; Z79.82 Long term (current) use of aspirin; Z79.899 Other long term (current) drug therapy; Z98.890 Other specified postprocedural states
CPT/HCPCS: 36415; 71045; 80053; 83605; 83735; 84484; 85025; 93005; 96365; 96366; 96367; 99285; J0610; J3490